=== PATIENT | female | born 1950 | race Caucasian/White ===

== ENCOUNTER 2019-12-23 18:19 | Emergency (ER) | payer OTHER ==
[~2019-12-23] VITALS: Ht 162.6 cm; Wt 140.6 kg
--- NOTE | 2019-12-23 18:19 | NUR ---
BIBA TAKEN TO BED 12
[2019-12-23 18:21] VITALS: BP 149/97
--- NOTE | 2019-12-23 18:23 | NUR ---
69 Y/O FEMALE EZEKIEL BLS FROM [facility] C/O RUQ PAIN X 1 WK. STATES SHE HAS HAD INCREASED NAUSEA. DENIES VOMITING/DIARRHEA. ABD SOFT, ROUND, TENDER TO PALP IN RUQ. BOWEL SOUNDS PRESENT. 8/10 SHARP ABD PAIN. HOB ELEVATED, POSITIONED FOR COMFORT. RR EVEN AND UNLABORED. PLACED ON MONITOR MEDHX: COPD, DM, MDD, GALL STONES ALLERGIES: PENICILLIN, MORPHINE
--- NOTE | 2019-12-23 18:52 | NUR ---
LAB AT BEDSIDE
--- NOTE | 2019-12-23 18:52 | NUR ---
22G IV PLACED TO LT HAND
[2019-12-23 19:00] LABS: BASOPHILS # (AUTO) 0.1 K/uL (0.00-0.22); BASOPHILS % (AUTO) 1.1 % (0.0-2.0); EOSINOPHILS # (AUTO) 0.3 K/uL (0-0.4); EOSINOPHILS % (AUTO) 2.4 % (0.0-4.0); HEMATOCRIT 43.4 % (36-48); LYMPHOCYTES # (AUTO) 2.7 K/uL (2.5-16.5); LYMPHOCYTES % (AUTO) 19.7 % (20.5-51.1); MEAN CORPUSCULAR HEMOGLOBIN 29 pg (27-31); MEAN CORPUSCULAR HGB CONC 32 g/dL (33-37); MEAN CORPUSCULAR VOLUME 88.8 fL (80-94); MONOCYTES % (AUTO) 7.5 % (1.7-9.3); NEUTROPHILS # (AUTO) 9.4 K/uL (1.8-7.7); NEUTROPHILS % (AUTO) 69.3 % (42.2-75.2); PLATELET COUNT (AUTO) 361 K/uL (140-450); RED BLOOD CELL COUNT(AUTO) 4.89 MIL/uL (4.20-5.40); RED CELL DISTRIBUTION WIDTH 16.4 % (11.6-13.7); WHITE BLOOD COUNT (AUTO) 13.5 K/uL (4.8-10.8)
[2019-12-23 19:27] LABS: ALBUMIN 3.4 g/dL (3.4-5.0); ANION GAP 15.3 (8-16); CARBON DIOXIDE 29.8 mmol/L (21-32); CREATININE 1.5 mg/dL (0.6-1.3); POTASSIUM 3.1 mmol/L (3.5-5.1); TOTAL BILIRUBIN 0.4 mg/dL (0.0-1.0)
[2019-12-23] MEDS ORDERED: NACL 0.9% 1,000 ML IV ONE (19:40)
[2019-12-23] MEDS ORDERED: ONDANSETRON 4 MG/2 ML VIAL IVP ONE (19:40)
[2019-12-23] MEDS ORDERED: KETOROLAC 30 MG/ML VIAL IVP ONE (19:40)
--- NOTE | 2019-12-23 19:43 | NUR ---
urine collected via straight cath 16fr, output of 100ml recieved.
[2019-12-23 19:49] LABS: BILIRUBIN,URINE NEGATIVE (NEGATIVE); BLOOD, URINE 1+ (NEGATIVE); COLOR,URINE YELLOW (YELLOW); LEUKOCYTE ESTERASE ,URINE TRACE (NEGATIVE); NITRITE, URINE NEGATIVE (NEGATIVE); PH,URINE 5.5 (5.0-9.0); UGLUCOSE NEGATIVE (NEGATIVE)
[2019-12-23 19:50] LABS: APPEARANCE,URINE CLOUDY (CLEAR)
--- NOTE | 2019-12-23 20:01 | NUR ---
PT MEDICATED WITH TORADOL AND ZOFRAN, NS BOLUS INITIATED.
[2019-12-23 20:03] LABS: RBC,URINE 0-5 /HPF (0-5); WBC,URINE 0-5 /HPF (0-5)
--- NOTE | 2019-12-23 20:05 | NUR ---
US AT BEDSIDE.
--- NOTE | 2019-12-23 20:31 | NUR ---
reports decreased pain from 8/10 to 5/10 and tolerable. no further needs at this time. bed lowest and locked, rails x 2
[2019-12-23] MEDS ORDERED: DICYCLOMINE HCL LIQUID 20 MG, ALUMINUM HYD/MAG/SIMETHICONE 30 ML, LIDOCAINE VISCOUS 2% ... PO ONE ×3 (20:40)
[2019-12-23] MEDS ORDERED: ALUMINUM HYD/MAG/SIMETHICONE 30 ML UDC ONE (20:42)
[2019-12-23] MEDS ORDERED: LIDOCAINE VISCOUS 2% 20 ML UDC ONE (20:42)
[2019-12-23] MEDS ORDERED: DICYCLOMINE HCL LIQUID 10 MG/5 ML UDC ONE (20:43)
--- NOTE | 2019-12-23 20:48 | NUR ---
PT BEING TAKEN TO CT VIA GUNEY.
[2019-12-23] MEDS ORDERED: NITROFURANTOIN 100 MG CAP PO STA (22:23)
[2019-12-23] MEDS ORDERED: fentaNYL 0.05 MG/ML VIAL IVP ONE (22:25)
[2019-12-23] MEDS ORDERED: HYDROcodone/APAP 5/325 MG 1 TAB TAB PO ONE (23:25)
--- NOTE | 2019-12-23 23:38 | NUR ---
report called to Georgette Strange Ruvalcaba.
--- NOTE | 2019-12-23 23:55 | NUR ---
dcPatient discharged with v/s stable. Written and verbal after care instructions given and explained. Patient alert, oriented and verbalized understanding of instructions. Ambulatory with steady gait. All questions addressed prior to discharge. ID band removed. Patient advised to follow up with PMD. Rx of macrobid and mylanta given. Patient educated on indication of medication including possible reaction and side effects. Opportunity to ask questions provided and answered.
--- NOTE | 2019-12-23 23:56 | NUR ---
transport arrived and unable to transport patient due to smaller sized stretcher. transport arranged for a bigger sized stretcher unit and ETA is 1.5 hours
[2019-12-24 00:32] VITALS: BP 162/96
== END 2019-12-24 00:33 ==
LOC: MED 18:19
DX: N39.0 Urinary tract infection, site not specified (principal); R10.9 Unspecified abdominal pain; E11.9 Type 2 diabetes mellitus without complications; I10 Essential (primary) hypertension; J44.9 Chronic obstructive pulmonary disease, unspecified; Z88.0 Allergy status to penicillin; Z88.5 Allergy status to narcotic agent
CPT/HCPCS: 36415; 71250; 74176; 76705; 80053; 81001; 83690; 85025; 87086; 96374; 96375; 99285; J1885; J2405; J3010; J7030; Q0092